=== PATIENT | female | born 1945 | race Caucasian/White ===

== ENCOUNTER 2016-09-04 06:19 | Day surgery (SDC) | payer BC, OTHER ==
[2016-09-03 14:10] VITALS: BMI 25.7
--- NOTE | 2016-09-04 05:53 | HP ---
History & Physical Update - History History: No Change - Physical Physical: No Change - Assessment Assessment: No Change - Plan Plan: No Change
[~2016-09-04 06:19] MED LIST: CHONDROITIN SU A/HYALUR SOD 1 KIT IO ONE; TOBRAMYCIN/DEXAMETHASONE OPHTH. OINTMENT 1 TUBE TP ONE
[2016-09-04] MEDS ORDERED: TROPICAMIDE 1% OPHTH SOLN 15 ML BOTTLE ONE (06:42)
[2016-09-04] MEDS ORDERED: CYCLOPENTOLATE HCL 1% OPHTH SOLN 2 ML BOTTLE ONE (06:42)
[2016-09-04] MEDS ORDERED: MOXIFLOXACIN HCL 0.5% OPHTHALMIC 3 ML BOTTLE ONE (06:42)
[2016-09-04] MEDS ORDERED: PHENYLEPHRINE 2.5% OPHTH SOLN 15 ML BOTTLE ONE (06:43)
[2016-09-04 06:51] VITALS: TEMP 97.7
[2016-09-04] MEDS: CYCLOPENTOLATE HCL 1% OPHTH SOLN 2 ML BOTTLE OP SCH ×3 (07:00→07:20)
[2016-09-04] MEDS: MOXIFLOXACIN HCL 0.5% OPHTHALMIC 3 ML BOTTLE OP SCH ×3 (07:00→07:20)
[2016-09-04] MEDS: TROPICAMIDE 1% OPHTH SOLN 15 ML BOTTLE OP SCH ×3 (07:00→07:20)
[2016-09-04] MEDS: PHENYLEPHRINE 2.5% OPHTH SOLN 15 ML BOTTLE OP SCH ×3 (07:00→07:20)
[2016-09-04] MEDS ORDERED: LIDOCAINE HCL 2% (20ML MULTI-DOSE VIAL) NR ONE (07:09)
[2016-09-04] MEDS ORDERED: TRYPAN BLUE 0.5 ML DISP.SYRIN ONE (07:09)
[2016-09-04] MEDS ORDERED: TOBRAMYCIN/DEXAMETHASONE OPHTH. OINTMENT 1 TUBE ONE (07:09)
[2016-09-04] MEDS ORDERED: BUPIVACAINE HCL/PF 0.75% 10 ML VIAL ONE (07:09)
[2016-09-04] MEDS ORDERED: EPINEPHrine/PF 1 MG/1 ML (1:1,000) AMPULE ONE (07:09)
[2016-09-04] MEDS ORDERED: ACETYLCHOLINE 1:100 INTRA-OCUL 20 MG/2 ML KIT ONE (07:09)
[2016-09-04] MEDS ORDERED: POVIDONE-IODINE 5% OPHTHALMIC PREP 30 ML SOLUTION ONE (07:49)
[2016-09-04] MEDS ORDERED: MIDAZOLAM HCL 2 MG/2 ML SINGLE DOSE VIAL ONE (07:56)
[2016-09-04] MEDS ORDERED: PROPOFOL 20 ML ONE (08:19)
[2016-09-04] MEDS ORDERED: LIDOCAINE HCL 0.5%, 5 MG/ML (50mL SDVIAL) ONE (08:20)
[2016-09-04] MEDS ORDERED: TETRACAINE 0.5% HCL 0.6ML DROPPER.BOTTLE TP ONE (08:24)
[2016-09-04] MEDS ORDERED: BSS (NA/CA/MG/K) BALANCED SALT SOLUTION OPHTH SOLN 15 ML BOTTLE OS ONE (08:30)
[2016-09-04] MEDS ORDERED: TRYPAN BLUE 0.5 ML DISP.SYRIN IO ONE (08:31)
[2016-09-04] MEDS ORDERED: LIDOCAINE HCL 1% PRESERVATIVE FREE - 30ML VIAL IO ONE (08:32)
[2016-09-04] MEDS ORDERED: CHONDROITIN SU A/HYALUR SOD 1 KIT IO ONE (08:40)
[2016-09-04] MEDS ORDERED: TOBRAMYCIN/DEXAMETHASONE OPHTH. OINTMENT 1 TUBE TP ONE (09:32)
[2016-09-04 10:58] VITALS: BP 124/85; PULSE 62
--- NOTE | 2016-09-05 14:16 | OP ---
DATE OF OPERATION: 09/04/2016 SURGEON: Roberto Dalton MD PREOPERATIVE DIAGNOSIS: Cataract, left eye. OPERATION: Cataract extraction with intraocular lens implantation, left eye. POSTOPERATIVE DIAGNOSIS: Cataract, left eye. ANESTHESIA: Local with intravenous sedation. COMPLICATIONS: None. BLOOD LOSS: None. SPECIMEN: Cataract. BRIEF HISTORY: The patient is a 70-year-old woman who presented with decreased vision in the left eye down to counting fingers only due to a 3+ nuclear sclerotic lens and a diffuse posterior subcapsular cataract. After the risks, benefits, and alternatives to cataract surgery were discussed with the patient, she consented to surgery for the left eye. DESCRIPTION OF PROCEDURE: The patient was brought to the operating room and administered retrobulbar block after receiving intravenous sedation. She was then prepped and draped in the usual sterile fashion. Then, an eyelid speculum was inserted in the left eye. A paracentesis was made, and the anterior chamber was inflated with nonpreserved lidocaine. This was followed by injection of air, trypan blue dye, and Viscoat due to the poor red reflex. A groove was made in the superotemporal clear cornea which was tunneled forward with a crescent blade. The anterior chamber was entered with a 2.75 keratome. The cystotome was used to make an incision at the center of the capsule, and a continuous curvilinear capsulorrhexis was created. The lens was hydrodissected until it was found to rotate freely within the capsular bag. Phacoemulsification was started. However, the lens was significantly dense, and after 100 units of energy were used, minimal amount of lens had been phacoemulsified. Due to the amount of energy used, at this time, it was determined that manually extracting the remainder of the lens was better for the patient and would produce less inflammation. Capsulorrhexis was relaxed using the cystotome. After the anterior chamber was reinflated with Viscoat, the wound was enlarged in the right and left with scissors. The lens was then expressed manually without incident in one piece. A 10-0 nylon suture was used to close the wound at this point. Then, irrigation and aspiration were used to remove residual cortical material. One of the sutures was cut in order to allow the wound to be folded into place. The anterior chamber and sulcus were reinflated with Provisc, and a 22.0 diopter MA60AC lens was folded and placed in the sulcus, and the second haptic was dunked without incident. Irrigation and aspiration was used to remove residual viscoelastic. The removed sutures were replaced. The wound was found to be watertight. Miochol was injected into the eye, and the pupil was found to constrict round without any peaking. The sutures were rotated. The eye was found to be at an appropriate pressure. The eyelid speculum was removed from the eye, and Maxitrol ointment and a patch and shield were placed over the left eye. The patient was transferred to the recovery room in stable condition and will follow up tomorrow. ROBERTO DALTON M.D. [id number]
--- NOTE | 2016-09-05 14:53 | PATH ---
Surgical Pathology Report Patient Name: [place] [facility]. Rec. #: [id number] /Age/Gender: 1945 (Age: 70) / F Account: [id number] Location: [facility] SURGICAL Taken: 09/04/2016 Received: 09/04/2016 Reported: 09/05/2016 Physicians: Roberto Ramirez M.D. Specimen(s) Received CATARACT LEFT EYE Clinical History Cataract left eye Final Diagnosis CATARACT, LEFT EYE, EXTRACTION: LENS WITH HOMOGENIZATION AND VACUOLIZATION OF THE FIBERS CONSISTENT WITH CATARCT. Electronically Signed Yemi Jones M.D. Gross Description Received in formalin labeled "cataract left eye" is a 0.7 cm in diameter x 0.2 cm in thickness villalpando-yellow, lens shaped, opaque portion of crystalline tissue, consistent with a cataract. The specimen is trisected and entirely submitted in one cassette. /09/04/201609/04/2016
== END 2016-09-04 10:58 | disposition home or self-care (01) ==
LOC: JASU-SURG 06:19
PROVIDERS: ATTEND Ophthalmology
PROC: 08RK3JZ Replacement of Left Lens with Synthetic Substitute, Percutaneous Approach (ICD-10-PCS; principal; 2016-09-04 08:00)
DX: H25.12 Age-related nuclear cataract, left eye (principal); R29.2 Abnormal reflex
CPT/HCPCS: 88302-TC